=== PATIENT | female | born 2005 | race Caucasian/White ===

== ENCOUNTER 2023-04-10 21:17 | Emergency (ER) | payer OTHER ==
[2023-04-10] MEDS ORDERED: Acetaminophen 500 MG TAB ONE (23:02)
[2023-04-10 23:42] LABS: #Eosinphils 0.2 thou/uL (0.0-0.7); #Monocytes 0.4 thou/uL (0.11-0.59); #Neutrophils 4.4 thou/uL (1.40-6.50); %Basophils 0.5 % (0.0-1.0); %Eosinophils 2.8 % (0.0-10.0); %Lymphocytes 32.4 % (28.0-48.0); %Monocytes 5.2 % (0.0-4.0); %Neutrophils 58.7 % (31.0-61.0); Hematocrit 32.8 % (36.0-47.0); Hemoglobin 10.1 g/dL (12.0-16.0); Mean Corpuscular HGB CONC 30.8 g/dL (32.0-36.0); Mean Corpuscular Hemoglobin 24.5 pg (25.0-35.0); Mean Corpuscular Volume 79.4 fl (78.0-98.0); Mean Platelet Volume 9.6 fL (7.4-10.4); Platelet Count 232 10x3/uL (130-400); RBC Distribution Width 16.2 % (11.5-14.5); Red Blood Cell (RBC) Count 4.13 mill/uL (4.00-5.20); White Blood Cell (WBC) Count 7.5 10x3/uL (4.8-10.8)
[2023-04-10] MEDS ORDERED: cefTRIAXone (ROCEPHIN) 500 MG VIAL ONE (23:53)
[2023-04-11 00:36] LABS: ALT (SGPT) 24 U/L (8-55); AST (SGOT) 22 U/L (5-30); Albumin 4.1 g/dL (3.5-5.0); Alkaline Phosphatase 86 U/L (40-100); Anion Gap 15 mmol/L (10-20); BUN (Urea Nitrogen) 13 mg/dL (8.4-21.0); Bilirubin, Total 0.2 mg/dL (0.2-1.2); Calc. Creatinine Clearance 0 mL/min (70-130); Calcium 9.3 mg/dL (7.8-10.44); Carbon Dioxide 20 mmol/L (22-29); Chloride 108 mmol/L (98-107); Estimated GFR 128; Globulin 3.1 g/dL (2.4-3.5); Glucose 81 mg/dL (70-105); Lipase 17 U/L (8-78); Potassium 3.4 mmol/L (3.5-5.1); Protein, Total 7.2 g/dL (6.0-8.3); Sodium 140 mmol/L (136-145)
[2023-04-11] MEDS ORDERED: Potassium Chloride 20 MEQ TAB ONE (00:48)
[2023-04-11 01:30] LABS: Bacteria/HPF None Seen HPF (None Seen); Bilirubin Negative (Negative); Blood, Urine 3+ (Negative); CAUTI Indications for Culture Pelvic or flank pain; Clarity Extra Turbid (Clear); Glucose, Urine (Dipstick) Normal (Negative); Ketone, Urine Negative (Negative); Leukocyte 500 Leu/uL (Negative); Nitrite Negative (Negative); Protein, Urine (Dipstick) 70 mg/dL (Neg-Trace); Specific Gravity, Urine 1.018 (1.002-1.036); Squamous Epithelial 21-50 HPF (0-3); Urobilinogen Normal mg/dL (Less than 2); WBC/HPF Greater than 50 HPF (0-3)
[2023-04-11 01:31] LABS: Pregnancy Test - Urine (BHCG) Negative (Negative); Pregu Control Background? CLEAR/WHITE (CLR/WHITE); Pregu Control Bar Appear? YES (CONTROL BAR); Specific Gravity 1.018 (1.002-1.036); Urine Culture Reflex Yes Yes
[2023-04-11 11:22] LABS: Chlamydia by PCR, Vaginal Swab Not Detected (NotDetected); GC by PCR, Vaginal Swab Not Detected (NotDetected)
== END 2023-04-11 02:34 | disposition home or self-care (01) ==
LOC: ERS 21:17
DX: N73.9 Female pelvic inflammatory disease, unspecified (principal); E87.6 Hypokalemia
CPT/HCPCS: 74177; 80053; 81001; 81025; 83605; 83690; 85025; 87040; 87077; 87086; 87186; 87480; 87491; 87510; 87591; 87660; 96374; J0696

== ENCOUNTER 2023-10-02 17:14 | Emergency (ER) | payer MEDICAID, OTHER ==
[2023-10-02 18:43] LABS: Influenza A by NAA Not Detected (NotDetected); Influenza B by NAA Not Detected (NotDetected); SARS-CoV-2 NAA Rapid Test Not Detected (NotDetected)
== END 2023-10-02 19:20 | disposition home or self-care (01) ==
LOC: ERS 17:14
DX: J06.9 Acute upper respiratory infection, unspecified (principal)
CPT/HCPCS: 99283

== ENCOUNTER 2023-11-09 17:00 | Emergency (ER) | payer MEDICAID, OTHER ==
[2023-11-09] MEDS ORDERED: Ketorolac Tromethamine 30 MG (1 mL) VIAL ONE (17:25)
== END 2023-11-09 17:43 | disposition home or self-care (01) ==
LOC: ERS 17:00
DX: L03.116 Cellulitis of left lower limb (principal)
CPT/HCPCS: 96372; 99282; J1885